=== PATIENT | female | born 1990 | race Two or more races ===

== ENCOUNTER 2017-05-30 13:19 | Emergency (ER) | payer OTHER ==
[~2017-05-30] VITALS: Ht 152.4 cm; Wt 53.1 kg
[2017-05-30] MEDS ORDERED: PROAIR HFA8.5 GM INH (14:11)
[2017-05-30] MEDS ORDERED: ADULT WAL-100 MG/5 M ORAL (14:11)
[2017-05-30 14:14] VITALS: BP 116/83
--- NOTE | 2017-05-30 21:26 | Emergency Room Report ---
History of Present Illness General Chief Complaint: Upper Respiratory Illness Source: Patient Present Illness HPI The patient is a 27-year-old female presenting for inhalation of cleaning vapors. She states that she was in an enclosed room with a cleaning solution which included bleach. She then began to feel lightheaded and have some shortness of breath. She states that symptoms have improved. This occurred 3 hours prior. She denies any other symptoms according chest pain, hemoptysis, abdominal pain, headache Allergies: Coded Allergies: No Known Allergies (Unverified , 05/30/17) Patient History Past Medical History: see triage record Pertinent Family History: none Now: No Reviewed Nursing Documentation: PMH: Agreed; PSxH: Agreed Nursing Documentation-PMH Past Medical History: No Stated History Review of Systems All Other Systems: negative except mentioned in HPI Physical Exam Vital Signs Date Time Temp Pulse Resp B/P (MAP) Pulse Ox O2 Delivery O2 Flow Rate FiO2 05/30/17 13:31 97.9 76 20 116/83 95 Room Air 97.9 Sp02 EP Interpretation: reviewed, normal General Appearance: no apparent distress, alert, GCS 15, non-toxic Head: normocephalic, atraumatic Eyes: bilateral eye normal inspection, bilateral eye PERRL ENT: hearing grossly normal, normal pharynx, no angioedema, normal voice Respiratory: normal inspection, chest non-tender, no accessory muscle use, speaking full sentences, wheezing - bilat Cardiovascular #1: regular rate, rhythm, no edema Genitourinary: normal inspection, no CVA tenderness Musculoskeletal: back normal, gait/station normal, normal range of motion, non- tender Neurologic: alert, oriented x3, responsive, motor strength/tone normal, sensory intact, speech normal Psychiatric: judgement/insight normal, memory normal, mood/affect normal, no suicidal/homicidal ideation Skin: normal color, no rash, warm/dry, well hydrated Medical Decision Making PA Attestation Dr. Gonsalez is my supervising physician. Patient management was discussed with my supervising physician Diagnostic Impression: Primary Impression: Chlorine inhalation lung injury Additional Impression: Cough ER Course The patient is a 27-year-old female presenting for inhalation of cleaning vapors. Differential diagnoses considered but not limited to: chlorine gas inhalation, acute resp failure, PNA, bronchitis, among others PE: NAD. O2 sat 95% on RA HEENT unremarkable. Lungs have minimal bilateral wheezing. No respiratory distress Chest x-ray is unremarkable The patient will be discharged home with prescription for albuterol and guaifenesin. She is given strict return precautions including if she develops shortness of breath. Chest X-Ray Diagnostic Results Chest X-Ray Diagnostic Results : Chest X-Ray Ordered: Yes # of Views/Limited/Complete: 1 View Indication: Shortness of Breath EP Interpretation: Yes PA Xray: Interpretation reviewed, by supervising MD, and agrees with findings. Interpretation: no consolidation, no effusion, no pneumothorax, no acute cardiopulmonary disease Impression: No acute disease Electronically Signed by: Jordan Meyers PA-C Last Vital Signs Date Time Temp Pulse Resp B/P (MAP) Pulse Ox O2 Delivery O2 Flow Rate FiO2 05/30/17 14:14 97.9 20 116/83 95 Room Air 97.9 05/30/17 13:38 76 Status: improved Disposition: HOME, SELF-CARE Condition: Improved Scripts Guaifenesin* (ADULT WAL-TUSSIN*) 100 Mg/5 Ml Liquid 5 ML ORAL Q4H, #118 ML Prov: JORDAN MEYERS 05/30/17 Albuterol Sulfate* (PROAIR HFA*) 8.5 Gm Hfa.aer.ad 2 PUFFS INH Q6H, #8.5 GM 0 Refills Prov: JORDAN MEYERS 05/30/17 Referrals: NOT CHOSEN IPA/,REFERRING (PCP) Patient Instructions: Cough, Adult Additional Instructions: I discussed my findings with the patient. All questions and concerns have been answered. Treatment and medication compliance have been addressed. I advised the patient that they need to follow up with PMD in 3-5 days. Return to ED if pain remains or worsens, cough worsens or remains, you notice blood in your sputum, you notice wheezing, you experience a fever, or if needed for any reason. Patient verbalized understanding of discharge instructions. JORDAN MEYERS May 30, 2017 21:26
--- NOTE | 2017-05-31 10:12 | Diagnostic Imaging Report ---
Indication: Cough Technique: XRAY Chest 1v Comparison: None Findings: The cardiomediastinal silhouette is within normal limits. There is no focal consolidation, pneumothorax or pleural effusion. Osseous structures demonstrate no acute abnormality. Impression: No acute cardiopulmonary disease.
== END 2017-05-30 14:14 | disposition home or self-care (01) ==
LOC: EMR 13:40
DX: T59.4X1A Toxic effect of chlorine gas, accidental (unintentional), initial encounter (principal); R05 Cough; X58.XXXA Exposure to other specified factors, initial encounter; Y99.0 Civilian activity done for income or pay
CPT/HCPCS: 71045; 99284